=== PATIENT | male | born 1960 | race Caucasian/White ===

== ENCOUNTER 2022-11-17 03:51 | Outpatient (CLI) | payer OTHER, SELFPAY ==
[2022-11-17 15:52] LABS: ESR 13 mm/hr (0-20)
[2022-11-17 16:38] LABS: C-Reactive Protein 1.21 mg/dL (0.0-0.3)
== END 2022-11-17 03:52 | disposition home or self-care (01) ==
LOC: LBO 04:00
PROVIDERS: PCP Family Medicine; Visit Provider Registered Nurse Maternal Newborn
DX: R51.9 Headache, unspecified (principal)
CPT/HCPCS: 36415; 85652; 86140

== ENCOUNTER 2023-01-08 00:38 | Outpatient (CLI) | payer OTHER, SELFPAY ==
--- NOTE | 2023-01-08 07:15 | DI.MRI_ITS ---
Exam(s) MR ANGIO BRAIN WO CLINICAL HISTORY: headaches with valsalva, ? ANEURSYM,R51.9. TECHNIQUE: 3D [id number] study was performed without contrast. COMPARISON: Sinus CT 27 November 2022, MRI brain of the same day FINDINGS: Carotid Arteries: Petrous: Normal. Cavernous: Normal. Cerebral: Normal. Middle Cerebral Arteries: Right: No aneurysm or significant stenosis. Left: No aneurysm or significant stenosis. Anterior Cerebral Arteries: Right: No aneurysm or significant stenosis. Left: No aneurysm or significant stenosis. Posterior cerebral arteries: Right: No aneurysm or significant stenosis Left: No aneurysm or significant stenosis Basilar Artery: No aneurysm or significant stenosis. Small Vessels: No evidence of beading. IMPRESSION: Normal MRA examination of the [place]. DATA REPOSITORY:
--- NOTE | 2023-01-08 07:15 | DI.MRI_ITS ---
Exam(s) MR BRAIN WO EXAM: MR BRAIN WO CLINICAL HISTORY: new daily headaches,r51.9,? ANEURYSM TECHNIQUE: Multiplanar multisequence MRI of the brain was performed. COMPARISON: CT CT SINUS WO from 11/27/2022 MR MR ANGIO BRAIN WO from 01/08/2023 FINDINGS: VENTRICLES AND EXTRA AXIAL SPACES: Normal in size and morphology for the patient's age. MIDLINE SHIFT : None. CEREBRAL PARENCHYMA: No focus of restricted diffusion to suggest acute infarct. No space-occupying le helga identified. HEMORRHAGE: None. BRAINSTEM/CEREBELLUM: Normal. VISUALIZED PARANASAL SINUSES/MASTOIDS:Clear. [place]: Normal flow void. PITUITARY GLAND: Unremarkable. ORBITS: Unremarkable. IMPRESSION: Unremarkable MRI of the brain. DATA REPOSITORY:
== END 2023-01-08 00:58 ==
LOC: DI 00:39
PROVIDERS: PCP Family Medicine; Visit Provider Nurse Practitioner Adult Health
DX: R51.9 Headache, unspecified (principal)
CPT/HCPCS: 70544; 70551